=== PATIENT | male | born 1995 | race Caucasian/White ===

== ENCOUNTER 2022-06-03 23:41 | Emergency (ER) | payer OTHER, MEDICAID ==
[~2022-06-03] VITALS: Ht 165.1 cm; Wt 99.8 kg
[2022-06-03 23:55] VITALS: BP_SYST 126
--- NOTE | 2022-06-03 23:55 | NUR ---
Patient triaged and placed in waiting room. VSS and patient appears in no acute distress at this time. Accompanied by , awaiting available bed, and MD notified of need for MSE.
--- NOTE | 2022-06-04 00:30 | NUR ---
call pt name in the WR .No answer.
--- NOTE | 2022-06-04 00:35 | NUR ---
call pt name in the WR .No answer.
--- NOTE | 2022-06-04 00:40 | NUR ---
call pt name in the WR .No answer. Patient left without being seen.
== END 2022-06-04 00:40 | disposition left against medical advice (07) ==
LOC: SED 23:41
DX: M54.50 Low back pain, unspecified (principal); M79.631 Pain in right forearm; M54.2 Cervicalgia; Z53.21 Procedure and treatment not carried out due to patient leaving prior to being seen by health care provider; V89.2XXA Person injured in unspecified motor-vehicle accident, traffic, initial encounter; Y93.89 Activity, other specified; Y92.89 Other specified places as the place of occurrence of the external cause; Y99.8 Other external cause status